=== PATIENT | male | born 1960 | race Caucasian/White ===

== ENCOUNTER 2020-06-15 14:09 | Emergency (ER) | payer BC, OTHER ==
--- OUTSIDE RECORDS SUMMARY | 2020-06-15 14:11 | XMS REPORT | Clinical Summary ---
:1960 Author Organization [facility] Address [address] [place] [address] Care Team Providers Name Role Phone Asked, Pcp Primary Care Provider Unavailable Allergies No Known Allergies Medications Medication Sig Dispensed Refills Start Date End Date Status colestipol HCl 0 Activ e (COLESTIPOL ORAL) polyethylene glycol Take 4,000 mL 4000 mL 0 11/08/201911/08 (GOLYTELY) by mouth once 236-22.74-6.74 -5.86 for 1 dose. gram solution Please drink half of the gallon as directed on the box. mesalamine (PENTASA) Take 1 capsule 120 capsule 3 11/30/2019 0 12/30/2019 250 mg CR capsule (250 mg total) by mouth 4 (four) times a day for 120 doses. Active Problems Problem Noted Date H/O resection of small bowel 04/28/2019 Chronic diarrhea 04/28/2019 History of small bowel obstruction 04/28/2019 H/O testicular cancer 04/28/2019 Asthma 04/28/2019 Frequent headaches 04/28/2019 Hx of cholecystectomy 04/28/2019 Hx of appendectomy 04/28/2019 Encounters Date Type Specialty Care Team Description 11/30/2019 Telephone Gastroenterology Johnson Hudson RN 11/30/2019 Orders Only Gastroenterology Robin Miranda MD 11/18/2019 Orders Only GastroenterRobin Milan, H/O resection of MD small bowel (Primary Dx) 11/15/2019 Office Visit GastroenterRobin Milan, Questioned Documents Examiner edmond diarrhea (Primary Dx); History of smal l bowel obstruction 11/08/2019 Orders Only Gastroenterology Maddi Abrams MA 11/01/2019 Telephone Gastroenterology Maddi Abrams MA 10/10/2019 Surgery Gastroenterology Robin Miranda, COLO NOSCOPY with MD Ford Barnes 10/10/2019 Anesthesia Event Gastroenterology Savage Naranjo MD other, Morris Ayon MD 10/10/2019 Hospital Encounter Gastroenterology Robin Miranda MD 09/29/2019 Telephone Gastroenterology Robin Miranda MD 09/23/2019 Office Visit Gastroenterology Robin Miranda, Hist ory of small bowel obstruction (Primary Dx); Chronic diarrhe a; H/O resection o f small bowel; Colon cancer sc reening 08/19/2019 Telephone Gastroenterology Johnson Hudson RN 07/01/2019 Office Visit Gastroenterology Robin Miranda, Questioned Documents Examiner edmond diarrhea (Primary Dx) after 06/15/2019 Family History Medical History Relation Name Comments Diabetes Father Heart disease Father Other Mother RA Other Sister brain tumor Colon cancer Neg Hx Esophageal cancer Neg Hx Stomach cancer Neg Hx Relation Name Status Comments Father Mother Sister Social History Tobacco Use Types Packs/Day Years Used Date Never Smoker Smokeless Tobacco: Never Used Alcohol Use Drinks/Week oz/Week Comments Yes 0.0 1-2 drinks per w [place] Sex Assigned at Date Recorded Not on file Job Start Date Occupation Industry Not on file Not on file Not on file Travel History Travel Start Travel End No recent travel history available. Last Filed Vital Signs Vital Sign Reading Time Taken Comments Blood Pressure 113/78 11/15/2019 9:25 AM [employer] Pulse 76 11/15/2019 9:25 AM [employer] Temperature 36.2 C (97.1 F) 10/10/2019 2:05 PM [employer] Respiratory Rate 18 10/10/2019 2:05 PM [employer] Oxygen Saturation 100% 10/10/2019 2:05 PM [employer] Inhaled Oxygen Concentration - - Weight 78.9 kg (174 lb) 11/15/2019 9:25 AM [employer] Height 170.2 cm (5' 7") 11/15/2019 9:25 AM [employer] Body Mass Index 27.25 11/15/2019 9:25 AM [employer] Plan of Treatment Health Maintenance Due Date Last Done Comments COLONOSCOPY SCREENING 2010 SHINGLES VACCINES (#1) 2010 INFLUENZA VACCINE 05/29/2020 Procedures Procedure Name Priority Date/Time Associated Comments Diagnosis SURGICAL PATHOLOGY Routine 10/10/2019 2:24 Resul ts for this REQUEST PM [employer] procedure are i n the results section. COLONOSCOPY 10/10/2019 1:07 Colon cancer PM [employer] screening after 06/15/2019 Results Surgical pathology request (10/10/2019 2:24 PM [employer]) [facility] DEPARTMENT OF PATHOLOGY AND GENOMIC MEDICINE Surgical pathology See link below [facility] DEPARTMENT OF report for PDF Lab PATHOLOGY AND Report GENOMIC MEDICINE Result status This is Final [facility] DEPARTMENT OF Report for PATHOLOGY AND [id number] GENOMIC MEDICINE Specimen Performing Organization Address City/State/Zipcode Phone Number [facility] DEPARTMENT OF PATHOLOGY AND [address] [place], [place] [address] GENOMIC MEDICINE after 06/15/2019 Advance Directives For more information, please contact: [phone] Type Date Recorded Patient Machine Ii Engraver Explanati on Advance Directives, Living Will 10/10/2019 12:10 PM and Medical Power of Channeler Runner
--- OUTSIDE RECORDS SUMMARY | 2020-06-15 14:12 | XMS REPORT | Continuity of Care Document ---
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, 18 [place] unspecified as to cause SMALL BOWEL Active 08/31/20 MH [place] OBSTRUCTION 15 [place] OTHER INTESTINAL Active 08/31/20 [place] OBS 15 [place] HIGH GRADE PARTIAL Active 03/20/20 M H [place] SMALL BOWEL 14 [place] OBSTRUCTI ABD PAIN Active 11/02/19 [place] 14 [place] Acute kidney 04/09/2018 [place] ar failure, [place] unspecified Abdominal pain Active Problem 04/09/2018 O PID (finding) [place] Anal fissure Resolved Problem 04/09/2018 OPI D (disorder) [place] ASTHMA(Confirmed) Resolved Problem 04/09/2018 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 (disorder) [place], [place] Diarrhea (finding) Resolved Problem 04/09/2018 [place] Diverticulitis Active Problem 04/09/2018 O PID (disorder) [place] Steatosis of liver Active Problem 04/09/2018 OPID (disorder) [place] Intestinal Active Problem 04/09/2018 OPID obstruction [place] (disorder) [place], [place] Kidney stone Resolved Problem 04/09/2018 OPI D (disorder) [place] ASTHMA(Confirmed) Resolved Problem 09/06/2015 M H OPID [place] INTESTINAL Active [place] OBSTRUCT NOS [place] OTHER INTESTINAL Active [place] OBSTRUCTION [place] Medications Medication Details Route Status Patient Ordering Order Source Instructions Provider Date Acetaminophen 1 - 2 tab, PO, No Longer 01/01/ M H 300 MG / Q4H, PRN Pain, Active 018 [place] Codeine X 3 day, # 20 [place] Phosphate 30 MG tab, 0 Oral Tablet Refill(s) [Tylenol with Codeine #3] Magnesium Notes: WASTE: Inactive Sulfate F/P - Sink; E - 018 [place] [employer] [place] Bin Morphine Notes: (Same No Longer as:MORPhine Active 018 [place] Sulfate) [place] Zofran Notes: (Same No Longer as: Zofran) Active 018 [place] MEDICATION [place] WASTE Product Size: 4 mg Product Wasted: ___ mg Tylenol Notes: Do not No Longer exceed 4 Active 018 [place] gm/day. (Same [place] as: Tylenol) normal saline 1,000 mL, Rate: No Longer 0.9% IV 1,000 100 ml/hr, Active 018 [place] mL Infuse over: 10 [place] hr, Route: IV, Dosing Weight 77.273 kg, Total Volume: 1,000, Start date: 12/31/17 12:53:00 CDT, Duration: 30 day, Stop date: 01/30/18 12:52:00 CDT, 1.93, m2 Albuterol 0.83 Notes: SEE RT Inactive MG/ML Inhalant DOCUMENTATION 018 [place] ar Solution (Same as: [facility] Proventil) Morphine Notes: (Same Inactive as:MORPhine 018 [place] Sulfate) [place] Sodium Chloride 1,000 mL, 1000 Inactive 0.9% (Bolus) IV ml/hr, Infuse 018 Munoz gar Over: 1 hr, [facility] Route: IV, 1,000, Drug form: INJ, ONCE, Priority: STAT, Dosing Weight 73.722 kg, Start date: 12/31/17 9:05:00 CDT, Stop date: 12/31/17 9:05:00 CDT Saline Flush Notes: (Same Inactive 0.9% as: BD 018 [place] Posiflush) [place] Ondansetron Notes: (Same Inactive as: Zofran) 018 [place] MEDICATION [place] WASTE Product Size: 4 mg Product Wasted: ___ mg ciprofloxacin 500 mg = 1 tab, Active MH 500 mg oral PO, Q12H, X 7 015 [place] tablet day, # 14 tab, [place] 0 Refill(s) Metronidazole 500 mg = 1 tab, Active MH 500 MG Oral PO, BID, X 7 015 [place] Tablet day, # 14 tab, [place] 0 Refill(s) potassium 40 mEq, Route: Inactive MH chloride IVPB, ONCE, 015 [place] Dosing Weight [place] 75, kg, Start date: 09/02/15 10:00:00, Stop date: 09/02/15 10:00:00 potassium Notes: Infuse Inactive MH chloride at a rate of 10 015 [place] mEq/hr. (Same [place] as: KCL) Ciprofloxacin Notes: Do not No Longer MH refrigerate Active 015 [place] Flagyl Notes: (Same No Longer MH as: Flagyl) Active 015 [place] Avoid alcohol. [place] Colestipol 2-3 tab, PO, Active MH Hydrochloride TID 015 [place] 1000 MG Oral [place] Tablet Ondansetron Notes: (Same No Longer MH as: Zofran) Active 015 [place] MEDICATION [place] WASTE Product Size: 4 mg Product Wasted: ___ mg Morphine Notes: (Same Inactive MH as:MORPhine 015 [place] Sulfate) [place] potassium Notes: Infuse Inactive MH chloride at a rate of 10 015 [place] mEq/hr. (Same [place] as: KCL) Morphine Notes: (Same No Longer MH as:MORPhine Active 015 [place] Sulfate) [place] Zofran Notes: (Same No Longer MH as: Zofran) Active 015 [place] MEDICATION [place] WASTE Product Size: 4 mg Product Wasted: ___ mg Morphine Notes: (Same No Longer MH as:MORPhine Active 015 [place] Sulfate) [place] Morphine 4 mg, Route: Inactive MH IVP, ONCE, 015 [place] Dosing Weight [place] 75.636, kg, Priority: STAT, Start date: 08/31/15 14:02:00, Stop date: 08/31/15 14:02:00 Ondansetron 4 mg, Route: Inactive MH IVP, ONCE, 015 [place] Dosing Weight [place] 75.636, kg, Priority: STAT, Start date: 08/31/15 14:02:00, Stop date: 08/31/15 14:02:00 Sodium Chloride 1,000 mL, Rate: No Longer 0.154 MEQ/ML 125 ml/hr, Active 015 [place] Injectable Infuse over: 8 [place] Solution hr, Route: IV, Dosing Weight 75.636 kg, Total Volume: 1,000, Start date: 08/31/15 14:02:00, Duration: 30 day, Stop date: 09/30/15 14:01:00 Saline Flush Notes: (Same No Longer MH 0.9% as: BD Active 015 [place] Posiflush) [place] Allergies, Adverse Reactions, Alerts Substance Category Reaction Severity Reaction Status Date Comments S ource type Reported Thorazine Assertion anaphylaxis Drug Active MH allergy [place] Dilaudid Assertion Drug Active MH allergy [place] Immunizations No Data Provided for This Section Results Order Name Results Value Reference Date Interpretation Comments Cristal rce Range CHEM PANEL eGFR 58 01/01 Result Comment: The [place] eGFR is [place] calculated using the CKD-EPI formula. In most young, healthy individuals the eGFR will be >90 mL/min/1.73m2 . The eGFR declines with age. An eGFR of 60-89 may be normal in some populations, particularly the elderly, for whom the CKD-EPI formula has not been extensively validated. Use of the eGFR is not recommended in the following populations:< br/>
Autumn viduals with unstable creatinine concentration s, including patients and those with serious co-morbid conditions.<b r/>
Patie nts with extremes in muscle mass or diet.

The data above are obtained from the National Kidney Disease Education Program (NKDEP) which additionally recommends that when the eGFR is used in patients with extremes of body mass index for purposes of drug dosing, the eGFR should be multiplied by the estimated BMI. CHEM PANEL Calcium Lvl 7.5 8.5 - 10.5 01/01 [place] CHEM PANEL AGAP 14.2 10.0 - 01/01 MH 20.0 [place] CHEM PANEL CO2 20 24 - 32 01/01 [place] CHEM PANEL Chloride Lvl 109 95 - 109 01/01 [place] CHEM PANEL Potassium Lvl 3.2 3.5 - 5.1 01/01 [place] CHEM PANEL Sodium Lvl 140 135 - 145 04/ [place] CHEM PANEL Creatinine 1.34 0.50 - 04/ MH Lvl 1.40 /2017 [place] CHEM PANEL BUN 19 7 - 22 04/ [place] CHEM PANEL Glucose Lvl 88 70 - 99 04/ [place] CHEM PANEL Magnesium Lvl 1.0 1.8 - 2.4 04/ Result Comment: [place] Critical [place] Result(s) called to Tonny Damon at 01/01/2018 06:14 by NEIDA. Read back OK. CHEM PANEL Phosphorus 2.1 2.5 - 4.5 04/ [place] HEMATOLOGY MCV 89.3 80.0 - 04/ MH 94.0 /2017 [place] HEMATOLOGY MCH 30.6 27.0 - 04/ MH 31.0 [place] HEMATOLOGY Hct 40.8 42.0 - 04/ MH 54.0 [place] HEMATOLOGY Platelet 198 133 - 450 01/01 [place] HEMATOLOGY RDW 13.2 11.5 - 04 MH 14.5 /2017 [place] HEMATOLOGY MCHC 34.3 32.0 - 04/ MH 36.0 [place] HEMATOLOGY MPV 7.4 7.4 - 10.4 / [place] HEMATOLOGY WBC 7.0 3.7 - 10.4 / [place] HEMATOLOGY Hgb 14.0 14.0 - 04/ MH 18.0 /2017 [place] HEMATOLOGY RBC 4.57 4.70 - 04 MH 6.10 /2017 [place] HEMATOLOGY Basophils # 0.0 0.0 - 0.2 / [place] HEMATOLOGY Eosinophils # 0.2 0.0 - 0.5 04/ [place] HEMATOLOGY Monocytes # 0.6 0.0 - 0.8 04/ MH [place] HEMATOLOGY Monocytes 8.2 2.0 - 12.0 04/ MH [place] HEMATOLOGY Lymphocytes 28.4 20.0 - 04/ MH 40.0 [place] HEMATOLOGY Lymphocytes # 2.0 1.0 - 5.5 / [place] HEMATOLOGY Basophils 0.3 0.0 - 1.0 / [place] HEMATOLOGY Segs 59.5 45.0 - 04/ MH 75.0 /2017 [place] HEMATOLOGY Eosinophils 3.6 0.0 - 4.0 01/01 [place] HEMATOLOGY Segs-Bands # 4.2 1.5 - 8.1 01/01 [place] CHEM PANEL Lipase Lvl 111 73 - 393 12/31 [place] CHEM PANEL A/G Ratio 1.1 0.7 - 1.6 12/31 [place] CHEM PANEL Globulin 4.1 2.7 - 4.2 12/31 [place] CHEM PANEL B/C Ratio 11 6 - 25 12/31 [place] CHEM PANEL AGAP 16.7 10.0 - 04/ MH 20.0 /2017 [place] CHEM PANEL eGFR 37 04/ Result Comment: The [place] eGFR is [place] calculated using the CKD-EPI formula. In most young, healthy individuals the eGFR will be >90 mL/min/1.73m2 . The eGFR declines with age. An eGFR of 60-89 may be normal in some populations, particularly the elderly, for whom the CKD-EPI formula has not been extensively validated. Use of the eGFR is not recommended in the following populations:< br/>
Autumn viduals with unstable creatinine concentration s, including patients and those with serious co-morbid conditions.<b r/>
Patie nts with extremes in muscle mass or diet.

The data above are obtained from the National Kidney Disease Education Program (NKDEP) which additionally recommends that when the eGFR is used in patients with extremes of body mass index for purposes of drug dosing, the eGFR should be multiplied by the estimated BMI. CHEM PANEL Alk Phos 87 39 - 136 12/31 [place] CHEM PANEL Bili Total 1.1 0.2 - 1.3 12/31 [place] CHEM PANEL AST 17 0 - 37 12/31 [place] CHEM PANEL Albumin Lvl 4.6 3.5 - 5.0 12/31 [place] CHEM PANEL ALT 15 0 - 65 12/31 [place] CHEM PANEL Total Protein 8.7 6.4 - 8.4 12/31 [place] CHEM PANEL Calcium Lvl 9.3 8.5 - 10.5 12/31 [place] CHEM PANEL BUN 21 7 - 22 12/31 [place] CHEM PANEL Glucose Lvl 114 70 - 99 04/05 [place] CHEM PANEL Chloride Lvl 107 95 - 109 04/ [place] CHEM PANEL CO2 23 24 - 32 04/ [place] CHEM PANEL Potassium Lvl 3.7 3.5 - 5.1 04/ [place] CHEM PANEL Creatinine 1.95 0.50 - 04/05 MH Lvl 1.40 /2017 [place] CHEM PANEL Sodium Lvl 143 135 - 145 04/05 [place] HEMATOLOGY RBC 5.63 4.70 - 04/05 MH 6.10 /2017 [place] HEMATOLOGY WBC 12.1 3.7 - 10.4 04/ [place] HEMATOLOGY Hgb 17.3 14.0 - 04/ 18.0 /2017 [place] HEMATOLOGY Hct 50.6 42.0 - 04/05 54.0 /2017 [place] HEMATOLOGY MCH 30.7 27.0 - 04/ MH 31.0 /2017 [place] HEMATOLOGY MCV 89.9 80.0 - 04/05 94.0 /2017 [place] HEMATOLOGY Platelet 264 133 - 450 04/ [place] HEMATOLOGY RDW 12.9 11.5 - 04/05 MH 14.5 /2017 [place] HEMATOLOGY MCHC 34.1 32.0 - 04/05 MH 36.0 /2017 [place] HEMATOLOGY MPV 8.0 7.4 - 10.4 / [place] HEMATOLOGY Basophils # 0.0 0.0 - 0.2 / [place] HEMATOLOGY Eosinophils # 0.1 0.0 - 0.5 04/05 [place] HEMATOLOGY Monocytes # 0.8 0.0 - 0.8 04/05 [place] HEMATOLOGY Lymphocytes # 1.2 1.0 - 5.5 04/05 MH [place] HEMATOLOGY Basophils 0.2 0.0 - 1.0 04/05 MH [place] HEMATOLOGY Segs-Bands # 9.9 1.5 - 8.1 04/05 [place] HEMATOLOGY Eosinophils 0.9 0.0 - 4.0 04/05 MH [place] HEMATOLOGY Lymphocytes 10.1 20.0 - 04/05 MH 40.0 [place] HEMATOLOGY Monocytes 7.0 2.0 - 12.0 04/05 [place] HEMATOLOGY Segs 81.8 45.0 - 12/31 75.0 [place] HEMATOLOGY RBC Morph Normal 12/31 (12/31/17 9:47 AM) [place] URINE AND UA <=1.0 mg/dL 0.1 - 1.0 12/31 STOOL Urobilinogen [place] URINE AND UA Sq Epi None Seen 12/31 STOOL [place] URINE AND UA WBC 4 0 - 5 12/31 STOOL [place] URINE AND UA Trans Epi 3 <=0 /LPF 12/31 STOOL [place] URINE AND UA Hyal Cast 113 0 - 2 12/31 STOOL [place] URINE AND UA Mucus Many /LPF None Seen 12/31 STOOL /LPF [place] URINE AND UA RBC 1 0 - 2 12/31 STOOL [place] URINE AND UA Leuk Est Negative Negative 12/31 STOOL (12/31/17 9:47 AM) [place] URINE AND UA Glucose Negative Negative 12/31 STOOL mg/dL mg/dL [place] URINE AND UA Protein 100 mg/dL Negative 12/31 [place] mg/dL [place] URINE AND UA pH 5.0 5.0 - 8.0 12/31 STOOL [place] URINE AND UA Spec Grav 1.031 <=1.030 12/31 STOOL [place] URINE AND UA Turbidity Marked Clear 12/31 STOOL *ABN* [place] (12/31/17 9:47 AM) [place] URINE AND UA Nitrite Negative Negative 12/31 [place] (12/31/17 9:47 AM) [place] URINE AND UA Blood Negative Negative 12/31 [place] (12/31/17 9:47 AM) [place] URINE AND UA Bili Small Negative 12/31 STOOL *ABN* [place] (12/31/17 9:47 AM) [place] URINE AND UA Ketones Negative Negative 12/31 STOOL mg/dL mg/dL [place] URINE AND UA Color Jo-Ann Yellow 12/31 STOOL *ABN* [place] (12/31/17 9:47 AM) [place] CHEM PANEL eGFR 70 09/03 Result Comment: The [place] eGFR is [place] calculated using the CKD-EPI formula. In most young, healthy individuals the eGFR will be >90 mL/min/1.73m2 . The eGFR declines with age. An eGFR of 60-89 may be normal in some populations, particularly the elderly, for whom the CKD-EPI formula has not been extensively validated. Use of the eGFR is not recommended in the following populations:< br/>
Autumn viduals with unstable creatinine concentration s, including patients and those with serious co-morbid conditions.<b r/>
Patie nts with extremes in muscle mass or diet.

The data above are obtained from the National Kidney Disease Education Program (NKDEP) which additionally recommends that when the eGFR is used in patients with extremes of body mass index for purposes of drug dosing, the eGFR should be multiplied by the estimated BMI. CHEM PANEL Sodium Lvl 143 135 - 145 09/03 [place] CHEM PANEL AGAP 12.3 10.0 - 09/03 MH 20.0 /2014 [place] CHEM PANEL Chloride Lvl 108 95 - 109 09/03 [place] CHEM PANEL CO2 26 24 - 32 09/03 [place] CHEM PANEL Potassium Lvl 3.3 3.5 - 5.1 09/03 [place] CHEM PANEL Calcium Lvl 7.8 8.5 - 10.5 09/03 [place] CHEM PANEL Creatinine 1.16 0.50 - 09/03 MH Lvl 1.40 /2014 [place] CHEM PANEL BUN 4 7 - 22 09/03 [place] CHEM PANEL Glucose Lvl 134 70 - 99 09/03 [place] HEMATOLOGY Lymphocytes # 2.5 1.0 - 5.5 09/03 [place] HEMATOLOGY Basophils 0.4 0.0 - 1.0 09/03 [place] HEMATOLOGY Monocytes # 0.5 0.0 - 0.8 09/03 [place] HEMATOLOGY Segs-Bands # 4.9 1.5 - 8.1 09/03 [place] HEMATOLOGY Eosinophils # 0.2 0.0 - 0.5 09/03 [place] HEMATOLOGY Basophils # 0.0 0.0 - 0.2 09/03 [place] HEMATOLOGY Lymphocytes 30.2 20.0 - 12 MH 40.0 /2014 [place] HEMATOLOGY Segs 60.2 45.0 - 12 MH 75.0 /2014 [place] HEMATOLOGY Eosinophils 2.8 0.0 - 4.0 09/03 [place] HEMATOLOGY Monocytes 6.4 2.0 - 12.0 09/03 [place] HEMATOLOGY Hgb 12.4 14.0 - 09/03 MH 18.0 /2014 [place] HEMATOLOGY MCV 92.0 80.0 - 09/03 MH 94.0 /2014 [place] HEMATOLOGY Hct 37.8 42.0 - 09/03 MH 54.0 /2014 [place] HEMATOLOGY RDW 12.9 11.5 - 12 MH 14. /2014 [place] HEMATOLOGY MCHC 32.8 32.0 - 12 MH 36.0 /2014 [place] HEMATOLOGY MCH 30.1 27.0 - 12 MH 31.0 /2014 [place] HEMATOLOGY RBC 4.11 4.70 - 09/03 MH 6.10 [place] HEMATOLOGY WBC 8.2 3.7 - 10.4 09/03 [place] HEMATOLOGY Platelet 222 133 - 450 09/03 [place] HEMATOLOGY MPV 7.7 7.4 - 10.4 09/03 [place] CHEM PANEL eGFR 74 09/02 Comment: The [place] eGFR is [place] calculated using the CKD-EPI formula. In most young, healthy individuals the eGFR will be >90 mL/min/1.73m2 . The eGFR declines with age. An eGFR of 60-89 may be normal in some populations, particularly the elderly, for whom the CKD-EPI formula has not been extensively validated. Use of the eGFR is not recommended in the following populations:< br/>
Autumn viduals with unstable creatinine concentration s, including patients and those with serious co-morbid conditions.<b r/>
Patie nts with extremes in muscle mass or diet.

The data above are obtained from the National Kidney Disease Education Program (NKDEP) which additionally recommends that when the eGFR is used in patients with extremes of body mass index for purposes of drug dosing, the eGFR should be multiplied by the estimated BMI. CHEM PANEL AGAP 11.9 10.0 - 09/02 MH 20.0 [place] CHEM PANEL Calcium Lvl 7.8 8.5 - 10.5 09/02 [place] CHEM PANEL Creatinine 1.12 0.50 - 12/ MH Lvl 1.40 /2014 [place] CHEM PANEL CO2 25 24 - 32 12 [place] CHEM PANEL Sodium Lvl 143 135 - 145 12 [place] CHEM PANEL Chloride Lvl 109 95 - 109 12 [place] CHEM PANEL Potassium Lvl 2.9 3.5 - 5.1 09/02 Result Comment: [place] Critical [place] Result(s) called to ABDIEL WAITE RN_ at 09/02/2015 06:07 byJA. Read back OK. CHEM PANEL BUN 4 7 - 22 12 [place] CHEM PANEL Glucose Lvl 100 70 - 99 12 /2014 [place] HEMATOLOGY Hct 37.7 42.0 - 12 MH 54.0 /2014 [place] HEMATOLOGY MCV 92.2 80.0 - 12 MH 94.0 /2014 [place] HEMATOLOGY MCH 30.2 27.0 - 09/02 MH 31.0 /2014 [place] HEMATOLOGY Platelet 221 133 - 450 09/02 [place] HEMATOLOGY MPV 7.5 7.4 - 10.4 09/02 [place] HEMATOLOGY Hgb 12.4 14.0 - 12 MH 18.0 /2014 [place] HEMATOLOGY RBC 4.09 4.70 - 12 MH 6.10 /2014 [place] HEMATOLOGY MCHC 32.8 32.0 - 12 MH 36.0 /2014 [place] HEMATOLOGY RDW 12.9 11.5 - 12/ MH 14.5 /2014 [place] HEMATOLOGY WBC 6.9 3.7 - 10.4 09/02 [place] HEMATOLOGY Monocytes 6.7 2.0 - 12.0 09/02 [place] HEMATOLOGY Basophils 0.4 0.0 - 1.0 09/02 /2014 [place] HEMATOLOGY Segs 58.5 45.0 - 12 MH 75.0 /2014 [place] HEMATOLOGY Lymphocytes 32.2 20.0 - 12/ MH 40.0 /2014 [place] HEMATOLOGY Eosinophils 2.2 0.0 - 4.0 09/02 [place] HEMATOLOGY Segs-Bands # 4.0 1.5 - 8.1 09/02 [place] HEMATOLOGY Lymphocytes # 2.2 1.0 - 5.5 09/02 [place] HEMATOLOGY Monocytes # 0.5 0.0 - 0.8 09/02 [place] HEMATOLOGY Eosinophils # 0.2 0.0 - 0.5 09/02 [place] HEMATOLOGY Basophils # 0.0 0.0 - 0.2 09/02 [place] CHEM PANEL B/C Ratio 8 6 - 25 09/01 [place] CHEM PANEL CO2 25 24 - 32 09/01 [place] CHEM PANEL AGAP 10.7 10.0 - 09/01 MH 20.0 /2014 [place] CHEM PANEL Albumin Lvl 3.2 3.5 - 5.0 09/01 [place] CHEM PANEL Calcium Lvl 7.8 8.5 - 10.5 09/01 [place] CHEM PANEL Total Protein 5.9 6.4 - 8.4 09/01 [place] CHEM PANEL Glucose Lvl 86 70 - 99 09/01 [place] CHEM PANEL BUN 9 7 - 22 09/01 [place] CHEM PANEL ALT 16 0 - 65 09/01 [place] CHEM PANEL A/G Ratio 1.2 0.7 - 1.6 09/01 [place] CHEM PANEL Alk Phos 76 39 - 136 09/01 [place] CHEM PANEL AST 21 0 - 37 09/01 [place] CHEM PANEL Globulin 2.7 2.0 - 4.0 09/01 [place] CHEM PANEL eGFR 69 09/01 [facility] Comment: The [place] eGFR is [place] calculated using the CKD-EPI formula. In most young, healthy individuals the eGFR will be >90 mL/min/1.73m2 . The eGFR declines with age. An eGFR of 60-89 may be normal in some populations, particularly the elderly, for whom the CKD-EPI formula has not been extensively validated. Use of the eGFR is not recommended in the following populations:< br/>
Autumn viduals with unstable creatinine concentration s, including patients and those with serious co-morbid conditions.<b r/>
Patie nts with extremes in muscle mass or diet.

The data above are obtained from the National Kidney Disease Education Program (NKDEP) which additionally recommends that when the eGFR is used in patients with extremes of body mass index for purposes of drug dosing, the eGFR should be multiplied by the estimated BMI. CHEM PANEL Bili Total 0.5 0.2 - 1.3 12/ MH /2014 [place] CHEM PANEL Sodium Lvl 142 135 - 145 12/ MH [place] CHEM PANEL Creatinine 1.18 0.50 - 12/05 MH Lvl 1.40 /2014 [place] CHEM PANEL Chloride Lvl 110 95 - 109 09/01 [place] CHEM PANEL Potassium Lvl 3.7 3.5 - 5.1 12 [place] HEMATOLOGY Monocytes # 0.5 0.0 - 0.8 12/ MH [place] HEMATOLOGY Eosinophils # 0.2 0.0 - 0.5 / MH [place] HEMATOLOGY Basophils # 0.0 0.0 - 0.2 09/01 MH [place] HEMATOLOGY Lymphocytes # 2.9 1.0 - 5.5 09/01 [place] HEMATOLOGY Basophils 0.5 0.0 - 1.0 09/01 [place] HEMATOLOGY Segs-Bands # 3.8 1.5 - 8.1 12 MH [place] HEMATOLOGY Monocytes 6.4 2.0 - 12.0 12/ MH [place] HEMATOLOGY Eosinophils 2.3 0.0 - 4.0 / MH [place] HEMATOLOGY Lymphocytes 39.5 20.0 - 12/05 MH 40.0 /2014 [place] HEMATOLOGY Segs 51.3 45.0 - 12/ MH 75.0 /2014 [place] HEMATOLOGY RBC 4.15 4.70 - 12/05 MH 6.10 /2014 [place] HEMATOLOGY MCH 30.2 27.0 - 12/05 MH 31.0 /2014 [place] HEMATOLOGY MCV 92.0 80.0 - 12/05 MH 94.0 /2014 [place] HEMATOLOGY Hct 38.2 42.0 - 12/05 MH 54.0 /2014 [place] HEMATOLOGY Hgb 12.5 14.0 - 12/05 MH 18.0 /2014 [place] HEMATOLOGY MCHC 32.8 32.0 - 12/05 MH 36.0 /2014 [place] HEMATOLOGY MPV 7.9 7.4 - 10.4 09/01 MH [place] HEMATOLOGY Platelet 222 133 - 450 12/ MH [place] HEMATOLOGY RDW 12.9 11.5 - 12/05 MH 14.5 /2014 [place] HEMATOLOGY WBC 7.3 3.7 - 10.4 09/01 [place] URINE AND UA pH 5.5 5.0 - 8.0 08/31 STOOL [place] URINE AND UA Protein 30 mg/dL Negative 08/31 [facility] mg/dL [place] URINE AND UA Spec Grav >=1.030 <=1.030 08/31 STOOL *ABN* /2014 [place] (08/31/15 2:25 PM) [place] URINE AND UA Ketones Negative Negative 08/31 STOOL *NA* /2014 [place] (08/31/15 2:25 PM) [place] URINE AND UA Mucus Moderate None Seen 08/31 STOOL /LPF /LPF /2014 [place] URINE AND UA RBC 0-2 /HPF 0 - 2 08/31 STOOL [place] URINE AND UA Bacteria Occasional None Seen 08/31 STOOL /HPF /HPF [place] URINE AND UA Bili Small Negative 08/31 STOOL *ABN* [place] (08/31/15 2:25 PM) [place] URINE AND UA Leuk Est Negative Negative 08/31 STOOL (08/31/15 2:25 PM) [place] URINE AND UA Sq Epi Rare /LPF Few /LPF 08/31 STOOL [place] URINE AND UA Nitrite Negative Negative 08/31 STOOL (08/31/15 2:25 PM) [place] URINE AND UA Blood Negative Negative 08/31 [facility]O[place] (08/31/15 2:25 PM) [place] URINE AND UA 0.2 0.1 - 1.0 08/31 STOOL Urobilinogen /2014 [place] URINE AND UA Glucose Negative Negative 08/31 STOOL (08/31/15 2:25 PM) [place] URINE AND UA Turbidity Clear Clear 08/31 STO[facility] (08/31/15 2:25 PM) [place] URINE AND UA Color Yellow Yellow 08/31 STOOL *NA* [place] (08/31/15 2:25 PM) [place] URINE AND UA WBC 0-2 /HPF None Seen 08/31 STOOL /HPF [place] CHEM PANEL Globulin 3.3 2.0 - 4.0 08/31 [place] CHEM PANEL Total Protein 7.5 6.4 - 8.4 08/31 [place] CHEM PANEL Albumin Lvl 4.2 3.5 - 5.0 08/31 [place] CHEM PANEL A/G Ratio 1.3 0.7 - 1.6 08/31 [place] CHEM PANEL AST 17 0 - 37 08/31 [place] CHEM PANEL Bili Total 0.4 0.2 - 1.3 08/31 [place] CHEM PANEL ALT 19 0 - 65 08/31 [place] CHEM PANEL Alk Phos 94 39 - 136 08/31 [place] CHEM PANEL B/C Ratio 11 6 - 25 08/31 [place] CHEM PANEL Lipase Lvl 313 73 - 393 08/31 [place] HEMATOLOGY PT 13.8 12.0 - 08/31 14.7 /2014 [place] HEMATOLOGY PTT 29.5 22.9 - 08/31 35.8 /2014 [place] HEMATOLOGY INR 1.03 0.85 - 08/31 1.17 [place] Pathology Reports No Data Provided for This Section Diagnostic Reports Report Value Date Source Abdomen 2 views DX EXAM: XR ABDOMEN 2 VIEW 01/01/2018 [facility] DATE: 01/01/2018 3:00 AM CDT INDICATION: - sbo ADDITIONAL INFORMATION: None. COMPARISON: 12/31/2017 TECHNIQUE: Upright and supine frontal view(s) o f the abdomen. FINDINGS: Lines and tubes: None. Lower thorax: Unremarkable where visualized. No free air under the diaphragm. Bowel: Bowel gas pattern is nonobstructive. No dilated bowel loops are visualized. Bones: No acute abnormality. IMPRESSION: Nonobstructive bowel gas pattern Abdomen 2 views DX {ABDOMINAL XRAY}12/31/2017 9:29 AM CDT 01/01/20 18 [facility] INDICATION: - r/o bowel obstruction COMPARISON: CT abdomen pelvis 08/31/2015, abdom inal x-ray 08/31/2015 TECHNIQUE: 2 views of the abdomen were performed . FINDINGS: No pneumoperitoneu m. There are multiple air-fluid levels in the colon, small bowel and the stomach. There is dilation of the small bowel in the left to mid abdomen, measuring up to 3.7 cm. Gas is present in the rectosigmoid region. There are no clinically significant osseous abno rmalities noted. IMPRESSION: Findings suggestive of gastr oenteritis or early/partial small bowel obstruction. Recommend further correlation with CT abdomen and pelvis. Findings discussed with Dr. Gallo over the phone by Dr. Joseph on 12/31/2017 at 1038 hours. Abdomen/Pelvis w IV EXAM: CT ABDOMEN AND PELVIS WITH CONTRAST 08/31/[address] [facility] [address] DATE:- Aug 31, 2015 04:57:45 PM . CLINICAL INDICATION: Acute abdominal pain. ADDITIONAL DATA: History of testicular cancer, h istory of abdominal surgeries COMPARISON: CT pelvis of 03/20/2014 Dose: DLP 989 mGy-cm TECHNIQUE: Helical acquisit ion of the abdomen and pelvis was obtained from the lung bases to the symphysis pubis after administration of oral contrast, and after uneventful administration of 100 cc O mnipaque intravenous contras t in the venous and delayed phases of contrast enhancement. Axial, sagittal and coronal images were interpreted. FINDINGS: Lung bases: Dependent atelectasis. Liver: Diffuse low density. Idx-hbatz-cx-characterize 5 mm hypodense right hepatic lesions. These appear stable compared with previous study. Spleen: Within normal limits. Adrenal glands: Within normal limits. Gallbladder/biliary: Within normal limits. Kidneys: Within normal limits. Normal excretion on delayed images. Pancreas: Within normal limits GI tract: Single postoperat gabby changes. Appendectomy. Fluid-filled right colon. Mild gaseous distention of transverse colon. Thickened ileum with adjacent inflammatory changes. Lymph nodes: Within normal limits. Urinary bladder: Within normal limits. Reproductive structures: Within normal limits. Regional skeleton: Within normal limits IMPRESSION: 1. Findings suggesting enter itis involving small bowel loops with fluid-filled loops of colon, which may be seen with diarrhea. There is no obstruction, perforation, or abscess. 2. Otherwise no acute abnormality in abdomen pel vis Abdomen 2 views DX Examination: Abdomen 2 views 08/31/2015 [employer] Provided History: Acute abdominal pain DIAGNOSIS: Abnormal bowel gas pattern, CT sca nning would be useful. DISCUSSION: Flat and upright views the abdomen demonstrate colonic distention with numerous air-fluid levels most of which appear within the colon as can be identified. At least mildly dilated fluid-pallavi led small bowel is evident. No free air is noted . The findings are abnormal. I suspect some degree of underlying small bowel obstruction however moderately distended colon with air-fluid levels may also suggest an associated ileus. CT scanning is recommended for a more definitive evaluation. Consultation Notes No Data Provided for This Section Discharge Summaries No Data Provided for This Section History and Physicals No Data Provided for This Section Vital Signs Vital Sign Value Date Comments Source Temperature Oral (F) 98.1 F 01/01/2018 [facility] [place] Respitory Rate 18 01/01/2018 [facility] [place] Heart Rate 67 01/01/2018 [facility] [place] Systolic (mm Hg) 92 01/01/2018 [facility] [place] Diastolic (mm Hg) 56 01/01/2018 [facility] [place] Respitory Rate 18 01/01/2018 [facility] [place] Heart Rate 64 01/01/2018 [facility] [place] Systolic (mm Hg) 97 01/01/2018 [facility] [place] Diastolic (mm Hg) 60 01/01/2018 [facility] [place] Temperature Oral (F) 98.2 F 01/01/2018 [facility] [place] Temperature Oral (F) 98.8 F 01/01/2018 [facility] [place] Systolic (mm Hg) 90 01/01/2018 [facility] [place] Diastolic (mm Hg) 62 01/01/2018 [facility] [place] Respitory Rate 18 01/01/2018 [facility] [place] Heart Rate 73 01/01/2018 [facility] [place] Height 170.18 cm 12/31/2017 [facility] [place] BMI Calculated 26.68 12/31/2017 [facility] [place] Weight 77.273 12/31/2017 [facility] [place] Weight 73.722 12/31/2017 [facility] [place] BMI Calculated 25.46 12/31/2017 [facility] [place] Height 170.18 cm 12/31/2017 [facility] [place] Respitory Rate 16 09/03/2015 [facility] [place] Heart Rate 72 09/03/2015 [facility] [place] Temperature Oral (F) 98.2 F 09/03/2015 [facility] [place] Systolic (mm Hg) 117 09/03/2015 [facility] [place] Diastolic (mm Hg) 77 09/03/2015 [facility] [place] Respitory Rate 16 09/03/2015 [facility] [place] Systolic (mm Hg) 95 09/03/2015 [facility] [place] Diastolic (mm Hg) 60 09/03/2015 [facility] [place] Temperature Oral (F) 98 F 09/03/2015 [facility] [place] Heart Rate 59 09/03/2015 [facility] [place] Systolic (mm Hg) 118 09/03/2015 [facility] [place] Diastolic (mm Hg) 69 09/03/2015 [facility] [place] Respitory Rate 17 09/03/2015 [place] Heart Rate 74 09/03/2015 [place] Temperature Oral (F) 98 F 09/03/2015 [facility] [facility] Height 170.18 cm 08/31/2015 [place] BMI Calculated 25.9 08/31/2015 [place] Weight 75 08/31/2015 [place] Weight 75.636 08/31/2015 [place] Encounters Location Location Encounter Encounter Reason Attending ADM DC Stat us Source Details Type Number For Provider Date Date Visit [facility] Outpt Diag [id number] Shiv 04/27 04/28 [facility] [id number] Daming 08/31 09/03 [facility]2014 [facility] [facility] Inpatient [id number] Shormi 12/31 01/01 [facility] /2017 [facility] [place] [facility] Procedures Procedure Code Date Perfomer Comments Source Appendectomy [id number] [place] Bilateral vasectomy [id number] [facility] Cholecystectomy [id number] [place] Colon operation [id number] [place] Miscellaneous [id number] intestinal [place] operations<sup>1</sup obstructions x 2 [place] > Scrotum and testicle [id number] [facility] [facility] Assessment and Plan No Data Provided for This Section Plan of Care No Data Provided for This Section Social History Social History Date Source Social History TypeResponse 03/21/2014 [facility] [place] Substance Abuse IV drug use: No Sexual Sexually active: Yes Exercise Exercise type: Walking Alcohol Frequency: 1-2 times per year, Has alcoh ol use interfered with work or home life? No, Do you ever drink more than intended? No, Has anyone been hurt or at risk by your drinking? No, Ready to change: No, Concerns about alcohol use in household: No Smoking Status Never smoker, Type: Cigarettes, Previous treatment: None, Ready to change: No, Concerns about tobacco use in household: No, Exposure to Tobacco Smoke None, Cigarette Smoking Last 365 Days No, Reg Smoking Cessation Counseling No Social History TypeResponse 03/21/2014 [place] Substance Abuse IV drug use: No. Sexual Sexually active: Yes. Exercise Exercise type: Walking. Employment/School 1 Alcohol Current, Frequency: 1-2 times per year. Alcohol use interferes with work or home: No. Drinks more than intended: No. Others hurt by drinking: No. Ready to change: No. Household alcohol concerns: No. Smoking Status Never smoker; Type: Cigarettes; Previous treatment: None; Ready to change: No; Concerns about tobacco use in household: No; Exposure to Tobacco Smoke None; Cigarette Smoking Last 365 Days No; Reg Smoking Cessation Counseling No entered on: 12/31/17 1WORKING. [employer] Family History No Data Provided for This Section Advance Directives No Data Provided for This Section Functional Status No Data Provided for This Section
--- OUTSIDE RECORDS SUMMARY | 2020-06-15 14:13 | XMS REPORT | Continuity of Care Document ---
:1960 Author Organization [facility] t Address [address] [place] [place] [address] Care Team Providers Name Role Phone Asked, Pcp Primary Care Physician Unavailable Tristan HILL Attending Clinician Unavailable Lee Miranda MD Attending Clinician Jose Alberto RICH Attending Clinician Unavailable Marcella MORSE Attending Clinician Gabo Brunson MD Attending Clinician Kishore Chaves Attending Clinician Pipo Attending Clinician Ra De La Cruz Attending Clinician Kishore Chaves Admitting Clinician Pipo Admitting Clinician Payers Payer Name Policy Type Policy Number Effective Date Expiration Date S kelly BCBSBCBS OUT xxxxxxxxxxxx 2019 [place] OF 00:00:00 [facility] STATExxxxxxxxx xx2019-Pr esentPPO Problems Condition Condition Condition Status Onset Resolution Last Treating Co mments Source Name Details Category Date Date Treatment Clinician Date H/O H/O Disease Active [place] resection resection 04-28 Meth [place] of small of small 00:00: st bowel bowel 00 Chronic Chronic Disease Active [place] diarrhea diarrhea 04-28 Method i 00:00: st 00 History of History of Disease Active [place] small small 04-28 Methodi bowel bowel 00:00: st obstructio obstructio 00 n n 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 00:00: st 00 Asthma Asthma Disease Active [place] 04-28 Methodi 00:00: st 00 Frequent Frequent Disease Active [place] headaches headaches 04-28 Meth [place] 00:00: st 00 Hx of Hx of Disease Active [place] cholecyste cholecyste 04-28 Nd faraz ctomy ctomy 00:00: st 00 Hx of Hx of Disease Active [place] appendecto appendecto 04-28 Nd faraz my my 00:00: st 00 SMALL Diagnosis Active 2014-092015-08-31 [facility] oria BOWEL 2- 15:35:00 l OBSTRUCTIO SMALL 08:00: Mari nn N BOWEL 00 OBSTRUCTIO N Active 08/31/2015 [place] OTHER Diagnosis Active 2014-092015-09-03 Mem oria INTESTINAL 2- 13:32:00 l OBS OTHER 08:00: [place] INTESTINAL 00 OBS Active 08/31/2015 [place] HIGH GRADE Diagnosis Active 2014-05-25 Memoria PARTIAL 03-20 16:57:00 l SMALL HIGH 00:00: [place] BOWEL GRADE 00 OBSTRUCTI PARTIAL SMALL BOWEL OBSTRUCTI Active 03/20/2014 [place] ABD PAIN Diagnosis Active 2014-04-04 M emoria 2-05 11:53:00 l ABD PAIN 00:00: Jeffrey n 00 Active 11/02/2013 [place] Sinus Sinus Diagnosis Active [facility] congestion [facility] Chronic [facility] Diagnosis [facility] Mild Mild Diagnosis Active [facility] intermitte intermitte [facility] kes - nt asthma nt asthma Masoud sam without without l complicati complicati Ou tpati on on ent Clinics Hypertrigl Hypertrigl Problem Active [facility] yceridemia yceridemia [facility] Chewing Chewing Problem Active [facility] tobacco tobacco [facility] - nicotine nicotine Memori a dependence dependence l without without Outpati complicati complicati en t on on Clinics Acute Problem 2018-04-09 Memor ia kidney 13:06:03 l failure, Acute [place] unspecifie kidney d failure, unspecifie d 04/09/2018 [place] Anal Problem Resolve 2018-04-09 Masoud sam fissure d 13:06:03 l (disorder) Anal Jeffrey n fissure (disorder) Resolved Problem 04/09/2018 OPID [place] ASTHMA(Con Problem Resolve 2018-04-09 Memoria firmed) d 13:06:03 l [place] ASTHMA(Con firmed) Resolved Problem 04/09/2018 [place] Malignant Problem Resolve 2018-04-09 M emoria neoplastic d 13:06:03 l disease [place] (disorder) Malignant neoplastic disease (disorder) Resolved Problem 04/09/2018 testicle OPID [place] Diarrhea Problem Resolve 2018-04-09 Me moria (finding) d 13:06:03 l Diarrhea Jeffrey n (finding) Resolved Problem 04/09/2018 [place] Kidney Problem Resolve 2018-04-09 Masoud sam stone d 13:06:03 l (disorder) Kidney Herm conchita stone (disorder) Resolved Problem 04/09/2018 OPID [place] ASTHMA(Con Problem Resolve 2015-09-06 Memoria firmed) d 02:21:53 l [place] ASTHMA(Con firmed) Resolved Problem 09/06/2015 OPID [place] Abdominal Problem Active 2018-04-09 Me moria pain 13:06:03 l (finding) [place] Abdominal pain (finding) Active Problem 04/09/2018 OPID [place] Diverticul Problem Active 2018-04-09 M emoria itis 13:06:03 l (disorder) Jeffrey n Diverticul itis (disorder) Active Problem 04/09/2018 OPID [place] Steatosis Problem Active 2018-04-09 Me moria of liver 13:06:03 l (disorder) Jeffrey n Steatosis of liver (disorder) Active Problem 04/09/2018 OPID [place] Intestinal Problem Active 2018-04-09 M emoria obstructio 13:06:03 l n [place] (disorder) Intestinal obstructio n (disorder) Active Problem 04/09/2018 OPID [place] INTESTINAL Diagnosis Active 2014-05-25 Memoria OBSTRUCT 16:57:00 l NOS [place] INTESTINAL OBSTRUCT NOS Active [place] OTHER Diagnosis Active 2015-09-03 Mem oria INTESTINAL 13:32:00 l OBSTRUCTIO OTHER Mari nn N INTESTINAL OBSTRUCTIO N Active [place] Partial Problem 2017-2018-04-09 2018-04-09 Memoria intestinal 4-12 13:06:03 13:06:03 l obstructio Partial 04:11: Her baeza n, intestinal 55 unspecifie obstructio d as to n, cause unspecifie d as to cause 01/07/2018 04/09/2018 [place] Allergies, Adverse Reactions, Alerts Allergy Allergy Status Severity Reaction(s) Onset Inactive Treating Comm ents Source Name Type Date Date Clinician Vicodin Adverse Active chest pain [facility] Thorazin Adverse Active anaphylaxis [facility] Thorazin Thorazin Active Memori a e e l [place] Dilaudid Dilaudid Active Memori a l [place] Family History Family Member Diagnosis Comments Start Date Stop Date Source Natural father Diabetes [facility] Me thodist Natural father Heart disease [facility] Natural mother Other [place] Me thodist Natural sister Other [facility] [place] thodist Family member Colon cancer [facility] ethodist Family member Esophageal cancer [facility] Family member Stomach cancer [facility] Social History Social Habit Start Date Stop Date Quantity Comments Source Sex Assigned At [facility] ethodist Alcohol intake 2019-12-08 2019-12-08 Current drinker [place] [facility] 00:00:00 00:00:00 of alcohol (finding) Alcohol Comment 2019-10-10 2019-10-10 1-2 drinks per [place] [facility] 00:00:00 00:00:00 week Social History 2014-03-21 2014-03-21 [facility] 00:26:05 00:26:05 Smoking Status Start Date Stop Date Source Never smoker [facility] Medications Ordered Filled Start Stop Current Ordering Indication Dosage Frequency Signature Comments Components Source Medication Medication Date Date Medication? Clinician (SIG) Name Name mesalamine 2020- No 250mg Q.25D Take 1 [place] ([place]) 3-04 04-03 capsule Method i 250 mg CR 00:00: 23:59 ([address] capsule 00 :00 total) by mouth 4 (four) times a day for 120 doses. polyethylen 2020- No 4000mL Take 4,000 Cuello e glycol 2-11 02-11 mL by Methodi (GOLYTELY) 00:00: 23:[address] 236-22.74-6 00 :00 for 1 .74 -5.86 dose. gram Please solution drink half of the gallon as directed on the box. colestipol Yes [place] HCl 1-13 Methodi (COLESTIPOL 14:22: st ORAL) 26 Bromfed DM Bromfed DM 2017-09 Yes [place] [address] [facility] 2-24 needed [facility] ProAir HFA ProAir HFA 2017-09 Yes [place] [address] [facility] 2-24 needed [facility] 00:[facility]: Memoria 00 l [facility]ics PredniSONE PredniSONE 2017-09 [place] [address] [facility] 2-24 - [facility] - 00:00: 00:00 Memoria 00 :00 l [facility] Acetaminoph No 1 - 2 tab, Memoria en 300 MG / 4-06 PO, Q4H, l Codeine 16:43: PRN Pain, Mari nn Phosphate 00 X 3 day, # 30 MG Oral 20 tab, 0 Tablet Refill(s) [Tylenol with Codeine #3] Magnesium No Notes: Memori a Sulfate 01-01 WASTE: F/P l 11:29: - Sink; E [place] 00 - Municipal Trash Bin Morphine No Notes: Memoria 4-05 (Same l 21:40: as:MORPhin [place] 00 e Sulfate) Zofran No Notes: Memoria -05 (Same as: l 17:53: Zofran) [place] 00 MEDICATION WASTE Product Size: 4 mg Product Wasted: ___ mg Tylenol No Notes: Do Memor ia -05 not exceed l 17:53: 4 gm/day. [place] (Same as: Tylenol) normal No 1,000 mL, Memori a saline 0.9% 12-31 Rate: 100 l IV 1,000 mL 17:53: ml/hr, Herm Infuse over: 10 hr, Route: IV, Dosing Weight 77.273 kg, Total Volume: 1,000, Start date: 12/31/17 12:53:00 CDT, Duration: 30 day, Stop date: 01/30/18 12:52:00 CDT, 1.93, m2 Albuterol No Notes: SEE Me moria 0.83 MG/ML 4-05 RT l Inhalant 16:44: DOCUMENTAT Her baeza Solution 00 ION (Same as: Proventil) Morphine No Notes: Memoria 4-05 (Same l 14:05: as:MORPhin [place] 00 e Sulfate) Sodium No 1,000 mL, Memori a Chloride -05 1000 l 0.9% 14:05: ml/hr, [place] (Bolus) IV 00 Infuse Over: 1 hr, Route: IV, 1,000, Drug form: INJ, ONCE, Priority: STAT, Dosing Weight 73.722 kg, Start date: 12/31/17 9:05:00 CDT, Stop date: 12/31/17 9:05:00 CDT Saline No Notes: Memoria Flush 0.9% 05 (Same as: l 14:05: BD [place] Posiflush) Ondansetron No Notes: Masoud sam -05 (Same as: l 14:05: Zofran) [place] MEDICATION WASTE Product Size: 4 mg Product Wasted: ___ mg ciprofloxac 2014-09 Yes 500 mg = 1 Memoria in 500 mg 2-07 tab, PO, l oral tablet 17:32: Q12H, X 7 H , # 14 tab, 0 Refill(s) Metronidazo 2014-09 Yes 500 mg = 1 Memoria le 500 MG 2-07 tab, PO, l Oral Tablet 17:32: BID, X 7 He , # 14 tab, 0 Refill(s) potassium 2014-09 No 40 mEq, Memor ia chloride 06 Route: l 16:00: IVPB, [place] 00 ONCE, Dosing Weight 75, kg, Start date: 09/02/15 10:00:00, Stop date: 09/02/15 10:00:00 potassium 2014-09 No Notes: Memori a chloride 2-06 Infuse at l 13:00: a rate of [place] 00 10 mEq/hr. (Same as: KCL) Ciprofloxac 2014-09 No Notes: Do M emoria in 2-05 not l 21:00: refrigerat [place] 00 e Flagyl 2014-09 No Notes: Memoria 2-05 (Same as: l 20:07: Flagyl) [place] 00 Avoid alcohol. Colestipol 2014-09 Yes 2-3 tab, Mem oria Hydrochlori 2-05 PO, TID l de 1000 MG 00:12: [place] Oral Tablet 00 Ondansetron 2014-09 No Notes: Masoud sam 2-04 (Same as: l 22:36: Zofran) [place] 00 MEDICATION WASTE Product Size: 4 mg Product Wasted: ___ mg Morphine 2014-09 No Notes: Memoria 2-04 (Same l 22:36: as:MORPhin [place] 00 e Sulfate) potassium 2014-09 No Notes: Memori a chloride 2-04 Infuse at l 22:00: a rate of [place] 00 10 mEq/hr. (Same as: KCL) Morphine 2014-09 No Notes: Memoria 2-04 (Same l 21:07: as:MORPhin [place] 00 e Sulfate) Zofran 2014-09 No Notes: Memoria 2-04 (Same as: l 21:06: Zofran) [place] 00 MEDICATION WASTE Product Size: 4 mg Product Wasted: ___ mg Morphine 2014-09 No Notes: Memoria 2-04 (Same l 21:06: as:MORPhin [place] 00 e Sulfate) Morphine 2014-09 No 4 mg, Memoria 2-04 Route: l 20:02: IVP, ONCE, [place] 00 Dosing Weight 75.636, kg, Priority: STAT, Start date: 08/31/15 14:02:00, Stop date: 08/31/15 14:02:00 Ondansetron 2014-09 No 4 mg, Memor ia 2-04 Route: l 20:02: IVP, ONCE, [place] 00 Dosing Weight 75.636, kg, Priority: STAT, Start date: 08/31/15 14:02:00, Stop date: 08/31/15 14:02:00 Sodium 2014-09 No 1,000 mL, Memori a Chloride 2-04 Rate: 125 l 0.154 20:02: ml/hr, [place] MEQ/ML 00 Infuse Injectable over: 8 Solution hr, Route: IV, Dosing Weight 75.636 kg, Total Volume: 1,000, Start date: 08/31/15 14:02:00, Duration: 30 day, Stop date: 09/30/15 14:01:00 Saline 2014- No Notes: Memoria Flush 0.9% 2-04 (Same as: l 20:02: BD [place] 00 Posiflush) Colestipol Colestipol Yes [place] [address] [facility] Vital Signs Vital Name Observation Time Observation Value Comments Source Systolic blood 2019-11-15 09:25:00 113 mm[Hg] [place] [facility] pressure Diastolic blood 2019-11-15 09:25:00 78 mm[Hg] [place] [facility] pressure Heart rate 2019-11-15 09:25:00 76 /min [place] [facility] Body height 2019-11-15 09:25:00 170.2 cm [place] [facility] Body weight 2019-11-15 09:25:00 78.926 kg [place] [facility] BMI 2019-11-15 09:25:00 27.25 kg/m2 [place] [facility] Body temperature 2019-10-10 14:05:00 36.17 Loren [place] [facility] Respiratory rate 2019-10-10 14:05:00 18 /min [place] [facility] Oxygen saturation in 2019-10-10 14:05:00 100 /min [place] [facility] Arterial blood by Pulse oximetry Temperature Oral (F) 2018-01-01 12:44:00 98.1 F [facility] [place] Respitory Rate 2018-01-01 12:44:00 Memori al [place] Heart Rate 2018-01-01 12:44:00 [facility] [place] Systolic (mm Hg) 2018-01-01 12:44:00 Masoud rial [place] Diastolic (mm Hg) 2018-01-01 12:44:00 Mem orial [place] Respitory Rate 2018-01-01 08:15:00 Memori al [place] Heart Rate 2018-01-01 08:15:00 [facility] [place] Systolic (mm Hg) 2018-01-01 08:15:00 Masoud rial [place] Diastolic (mm Hg) 2018-01-01 08:15:00 Mem orial [place] Temperature Oral (F) 2018-01-01 08:15:00 98.2 F [facility] [place] Temperature Oral (F) 2018-01-01 04:54:00 98.8 F [facility] [place] Systolic (mm Hg) 2018-01-01 04:54:00 Masoud rial [place] Diastolic (mm Hg) 2018-01-01 04:54:00 Mem orial [place] Respitory Rate 2018-01-01 04:54:00 Memori al [place] Heart Rate 2018-01-01 04:54:00 [facility] [place] Height 2017-12-31 17:09:00 170.18 cm [facility] [place] BMI Calculated 2017-12-31 17:09:00 Memori al [place] Weight 2017-12-31 17:09:00 [facility] [place] Weight 2017-12-31 13:39:00 [facility] [place] BMI Calculated 2017-12-31 13:39:00 Memori al [place] Height 2017-12-31 13:39:00 170.18 cm [facility] [place] Respitory Rate 2015-09-03 17:42:00 Memori al [place] Heart Rate 2015-09-03 17:42:00 [facility] [place] Temperature Oral (F) 2015-09-03 17:42:00 98.2 F [facility] [place] Systolic (mm Hg) 2015-09-03 17:42:00 Masoud rial [place] Diastolic (mm Hg) 2015-09-03 17:42:00 Mem orial [place] Respitory Rate 2015-09-03 13:15:00 Memori al [place] Systolic (mm Hg) 2015-09-03 13:15:00 Masoud rial [place] Diastolic (mm Hg) 2015-09-03 13:15:00 Mem orial [place] Temperature Oral (F) 2015-09-03 13:15:00 98 F [facility] [place] Heart Rate 2015-09-03 13:15:00 [facility] [place] Systolic (mm Hg) 2015-09-03 09:17:00 Masoud rial [place] Diastolic (mm Hg) 2015-09-03 09:17:00 Mem orial [place] Respitory Rate 2015-09-03 09:17:00 Memori al [place] Heart Rate 2015-09-03 09:17:00 [facility] [place] Temperature Oral (F) 2015-09-03 09:17:00 98 F [facility] [place] Height 2015-08-31 22:34:00 170.18 cm [facility] [place] BMI Calculated 2015-08-31 22:34:00 Memori al [place] Weight 2015-08-31 22:34:00 [facility] [place] Weight 2015-08-31 19:47:00 [facility] [place] Procedures Procedure Date / Time Performing Clinician Source Performed SURGICAL PATHOLOGY REQUEST 2019-10-10 14:24:00 Robin Miranda [facility] COLONOSCOPY 2019-10-10 13:07:00 Robin Miranda ethodist Appendectomy [facility] [place] Bilateral vasectomy Memorial Her baeza Cholecystectomy [facility] [place] Colon operation [facility] [place] Miscellaneous [facility] [place] operations<sup>1</sup> Scrotum and testicle Memorial rmann operation Plan of Care Planned Activity Planned Date Details Comments Source Future Scheduled 2020-05-29 INFLUENZA VACCINE [place] [facility] Test 00:00:00 [code = INFLUENZA VACCINE] Future Scheduled 2010 COLONOSCOPY SCREENING [place] [facility] Test 00:00:00 [code = COLONOSCOPY SCREENING] Future Scheduled 2010 SHINGLES VACCINES [place] [facility] Test 00:00:00 (#1) [code = SHINGLES VACCINES (#1)] Encounters Start End Encounter Admission Attending Care Care Encounter Source Date/Time Date/Time Type Type Clinicians Facility Department ID 2018-09-20 2018-09-20 [facility] [id number] 08:30:00 08:30:00 [facility] 2017-12-31 2018-01-01 Outpatient Kishore PATIÑO S [id number] 08:34:00 12:23:00 Hal Chaves 2015-08-31 2015-09-03 Outpatient KAYLYN Foss MHSL [id number] 13:45:00 13:19:00 [place] 08 2014-04-27 2014-04-27 Outpatient HILDA De La [place] [id number] 08:34:00 23:59:00 Shiv Knapp Results Test Description Test Time Test Comments Results Result Comments Source Surgical pathology request 2019-10-12 12:55:50 Test Item Value Reference Range Interpretation Comme nts Case number (test code = [id number]) [id number] Surgical pathology report (test code = See link below for PDF Lab R eport 0890) Result status (test code = [id number]) This is Final Report for [id number] [place] MethodistCHEM [id number] 10:47:0058[facility]ann[facility]M PANEL 2018-01-01 10:47:007.5[facility] HermannCHEM [id number] 10:47:0014.2[facility] HermannCHEM ZHBVB7196-15-61 10:47:0020[facility] HermannCHEM EBBBU8012-59-75 10:47:37009Nmkkfogq HermannCHEM ZIHCU4255-28-61 10:47:003.2[facility] HermannCHEM IPXFJ3253-79-89 10:47:74300Yjwveqvo HermannCHEM LTXSL3541-52-52 10:47:001.34 [facility]annCHEM SXSMA4188-19-37 10:47:0019[facility] HermannCHEM PANEL 2018-01-01 10:47:0088[facility] HermannCHEM RLTBE1131-41-47 10:47:001.0[facility] HermannCHEM UFKJD6846-28-48 10:47:002.1[facility]orial TqabhqiGFCCUTJELO6828-04-87 10:47:0089.3[facility]orial GarthbnWXKBDMKSAU7700-94-56 10:47:00 Test Item Value Reference Range Interpretation Comments MCH (test code = MCH) 30.6 pg 27.0-31.0 Memorial QvvbdccVYEWHHUBWE6603-56-22 10:47:0040.8[facility] HermannHEMATOLOGY 2018-01-01 10:47:23815Berqeeau TxgxopdTLOIMKZRVM8810-94-37 10:47:0013.2[facility]orial ZkvojauEMXKRFNBAG6957-06-25 10:47:0034.3[facility] OfpmyuxGMYWSACHGI6111-86-75 10:47:007.4[facility]orial RnslmanJKQHVDFSTN6145-79-49 10:47:007.0[facility] [place] JNRJPRUOPO6993-10-72 10:47:0014.0[facility] IrfocjeZVMTINGGPR8274-82-09 10:47:00 4.57[facility] PgcldwuFVQNYFDTIH1840-03-40 10:47:000.0[facility] HermannHEMATOLOGY 2018-01-01 10:47:000.2[facility] WemrlfmNOFVETVUHG6501-11-01 10:47:000.6[facility] SxqwhogFXMFEUIIJP7981-53-78 10:47:008.2[facility] CjppagkZIJHUHTQRH7751-02-01 10:47:0028.4[facility] RnhmnauUHIKLEBURE7547-62-46 10:47:002.0[facility] [place] GQBWWENRTF4614-24-44 10:47:000.3[facility] OduxihpQBZCXVEKEV4634-70-06 10:47:00 59.5[facility] WkovmdoLGOSKAKLLT0675-62-90 10:47:003.6[facility] HermannHEMATOLOGY 2018-01-01 10:47:004.2[facility] HermannCHEM JRQHE7766-54-02 14:47:31182Jdubfujk HermannCHEM NMBDL2045-64-75 14:47:00 Test Item Value Reference Range Interpretation Comments A/G Ratio (test code = A/G Ratio) 1.1 1 0.7-1.6 [facility]annCHEM [id number] 14:47:004.1[facility] HermannCHEM PANEL 2017-12-31 14:47:00 Test Item Value Reference Range Interpretation Comments B/C Ratio (test code = B/C Ratio) 11 1 6-25 [facility]annCHEM [id number] 14:47:0016.7[facility] HermannCHEM PANEL 2017-12-31 14:47:0037[facility] HermannCHEM TGKEZ3628-56-56 14:47:0087[facility] HermannCHEM SMRKQ6361-70-66 14:47:001.1[facility] HermannCHEM PGCII2420-66-42 14:47:0017[facility] HermannCHEM OIMYR9201-90-51 14:47:004.6[facility] HermannCHEM PJHYI4471-12-49 14:47:0015[facility] HermannCHEM NECXJ7502-15-69 14:47:008.7 [facility]annCHEM CREUO3541-57-26 14:47:009.3[facility] HermannCHEM PANEL 2017-12-31 14:47:0021[facility] HermannCHEM RKVYF5457-45-45 14:47:67779Zffyhubq HermannCHEM BEIGG6117-04-15 14:47:35530Tmryrtlu HermannCHEM XSKSV3444-02-20 14:47:0023[facility] HermannCHEM EYTYW7279-35-43 14:47:003.7[facility] HermannCHEM ZFLLT1693-94-19 14:47:001.95[facility] HermannCHEM TASWI5540-48-76 14:47:12359 Memorial BmdpitkETTSAULZQK3180-30-90 14:47:005.63[facility] HermannHEMATOLOGY 2017-12-31 14:47:0012.1[facility] CttiiufYIHXLTXRKT2827-25-52 14:47:0017.3[facility] DeheoybWUOJVYBWKU6819-24-75 14:47:0050.6[facility] HfqxhmeZNIURJJKOY8968-31-79 14:47:00 Test Item Value Reference Range Interpretation Comments MCH (test code = MCH) 30.7 pg 27.0-31.0 Memorial RktjtlwJSBRNURKPD7156-24-81 14:47:0089.9[facility] HermannHEMATOLOGY 2017-12-31 14:47:30005Qxoctkex PxqdmzcORQJQURHWU7475-23-29 14:47:0012.9[facility] OierbauTTOENGOCXQ6569-21-53 14:47:0034.1[facility] QasbuonVJPLEXLGFF6621-62-12 14:47:008.0[facility] JfmqjmzRGIBGNNVPC7781-05-52 14:47:000.0[facility] [place] OONQVGPQEG7423-83-89 14:47:000.1[facility] YpehfaxDBCHXJLMUX0837-46-65 14:47:000.8 Memorial LplusthCULPQKJASL7389-05-27 14:47:001.2[facility] HermannHEMATOLOGY 2017-12-31 14:47:000.2[facility] MjzhtfaQAOTZWXWWB2319-39-10 14:47:009.9[facility] MymcujnYUHMLGEFAT8599-23-34 14:47:000.9[facility] MnqxrhgGBYBNDGUOD9816-81-07 14:47:0010.1[facility] ZgogzfpPXQLLQTGWF9445-02-01 14:47:007.0[facility] [place] XAEEIZAVSG8673-28-22 14:47:0081.8[facility] PnbghrdLZFBJRLREF8296-99-64 14:47:00 Normal (12/31/17 9:47 AM)[facility]ann[facility] AND PTFBK5653-07-24 14:47:004 [facility] AND FXPAA7295-87-98 14:47:003[facility]ann[facility] AND XDESA6803-90-82 14:47:78180Yjdarwjm HermannURINE AND UVYYQ2197-95-24 14:47:001 [facility] AND RDFXF8724-10-55 14:47:00Negative (12/31/17 9:47 AM) [facility] RHPNM5629-36-12 14:47:00 Test Item Value Reference Range Interpretation Comments UA pH (test code = UA pH) 5.0 1 5.0-8.0 [facility] [id number] 14:47:00 Test Item Value Reference Range Interpretation Comments UA Spec Grav (test code = UA Spec 1.031 1 Grav) [facility] [id number] 14:47:00Marked *ABN*(12/31/17 9:47 AM) [facility] [id number] 14:47:00Negative (12/31/17 9:47 AM) [facility] INAQS3638-50-11 14:47:00Negative (12/31/17 9:47 AM) [facility] RNUGW8126-64-24 14:47:00Small *ABN*(12/31/17 9:47 AM) [facility] FWTYP0467-38-44 14:47:00Amber *ABN*(12/31/17 9:47 AM) [facility]annCHEM JTWFJ0911-46-87 11:10:0070[facility] HermannCHEM PANEL 2015-09-03 11:10:16107Haiblxud HermannCHEM EZRFS8814-92-67 11:10:0012.3[facility] HermannCHEM DCYLL0084-49-61 11:10:97088Giipusnf HermannCHEM TLLAS0349-08-93 11:10:0026[facility] HermannCHEM JXHKP0611-81-64 11:10:003.3[facility] HermannCHEM LVWOO5814-64-59 11:10:007.8[facility] HermannCHEM LAKJM4478-42-05 11:10:001.16 [facility] HermannCHEM UKLBK0579-99-92 11:10:004[facility] HermannCHEM PANEL 2015-09-03 11:10:00733Pgvgpljq WvowlumUOBMLSCCRJ6800-06-96 11:10:002.5[facility] EjnkymmADLEOMSPKT6748-63-33 11:10:000.4[facility] AxeqrnkEWUTOGPRPE9098-70-21 11:10:000.5[facility] HzzamtjYLBRCXPCIH8181-04-44 11:10:004.9[facility] [place] MFQSJTZVQD7206-02-75 11:10:000.2[facility] GshzwebWKEFUJRMWY8068-30-94 11:10:000.0 Memorial WyssrnuLCNJKIRXQF2647-81-95 11:10:0030.2[facility] HermannHEMATOLOGY 2015-09-03 11:10:0060.2[facility] NobswlyPMPBVLRFNG4286-79-76 11:10:002.8[facility] PzestrmNBLLCEWYAS4698-15-17 11:10:006.4[facility] ZtxuvgxUOOWMDGXJC5899-23-57 11:10:0012.4[facility] KbafjwpIOGFAQPVBL4979-19-96 11:10:0092.0[facility] [place] ZVWQRFKNXI2026-07-42 11:10:0037.8[facility] RbswbajJEQPTKGCWV3030-50-02 11:10:00 12.9[facility] DnrgdznMGBTVVXSCB2772-07-14 11:10:0032.8[facility]annHEMATOLOGY 2015-09-03 11:10:00 Test Item Value Reference Range Interpretation Comments MCH (test code = MCH) 30.1 pg 27.0-31.0 [facility] KxypnktVRCGJVEOKQ4224-06-22 11:10:004.11[facility]annHEMATOLOGY 2015-09-03 11:10:008.2[facility] ZwoaneqXGQICXLLUI1748-78-78 11:10:45630Nuybomnr CdmmpwtSFCOCCQQUS1686-19-70 11:10:007.7[facility] HermannCHEM HRBKY5560-46-83 11:27:0074[facility]annCHEM CPNYV1434-78-25 11:27:0011.9[facility]annCHEM ASXQQ0207-90-57 11:27:007.8[facility] HermannCHEM LCTWG2735-51-13 11:27:001.12 [facility]annCHEM UYYMG3183-79-51 11:27:0025[facility] HermannCHEM PANEL 2015-09-02 11:27:30430Yqijsyxw HermannCHEM ICANJ4933-79-16 11:27:82857Shlsvoso HermannCHEM ZUHEW3537-56-35 11:27:002.9[facility] HermannCHEM QIMHE6861-52-28 11:27:004[facility]annCHEM TTKGL9219-89-95 11:27:04486Kinawqwm Brandon GBMZUJPICN6006-60-01 11:27:0037.7[facility] RzxivisNSBPMKWPKI5837-79-58 11:27:00 92.2[facility] FgjipmuUFJPUSTTNS1596-11-61 11:27:00 Test Item Value Reference Range Interpretation Comments MCH (test code = MCH) 30.2 pg 27.0-31.0 [facility] IwrolgdWMCFOWLFCU8762-51-68 11:27:25428Beyrspbh HermannHEMATOLOGY 2015-09-02 11:27:007.5[facility] EoakloxICXMWEBNMO3156-19-54 11:27:0012.4[facility] CwxcckwHREYCXWGUS1109-03-81 11:27:004.09[facility] YhdqlnsCKSQIASXFZ2947-24-06 11:27:0032.8[facility] WjdclekAPXYCUJCWA7327-43-92 11:27:0012.9[facility] [place] VQTFPDZZRP2296-96-92 11:27:006.9[facility] NioocvzDFKSHXXAPW5373-64-59 11:27:006.7 [facility] YiexumdGVDNPLPHWR2494-32-24 11:27:000.4[facility] HermannHEMATOLOGY 2015-09-02 11:27:0058.5[facility] BpkfoinGJOYPQVUFU7535-32-19 11:27:0032.2[facility] TznyqwdEORZQWVBBD1320-84-47 11:27:002.2[facility] FzqaiosOCOKMOBIJG5811-66-69 11:27:004.0[facility] DkfqwzfMXLZTYIQJT8587-00-79 11:27:002.2[facility] [place] RYDUPJWXJL2486-84-68 11:27:000.5[facility] YsnvutvFISNLHAFHI1384-01-59 11:27:000.2 [facility] MddadvbAKGLCLBXKB5844-67-17 11:27:000.0[facility] HermannCHEM PANEL 2015-09-01 11:15:008[facility] HermannCHEM IVPYD9717-75-80 11:15:0025[facility] HermannCHEM SULTC5530-55-26 11:15:0010.7[facility] HermannCHEM NYDWG7409-92-38 11:15:003.2[facility] HermannCHEM YECBT3264-17-81 11:15:007.8[facility] HermannCHEM DCNWL7855-14-07 11:15:005.9[facility] HermannCHEM EBGVS9823-77-49 11:15:0086 [facility]annCHEM QTMXM1609-84-22 11:15:009[facility] HermannCHEM PANEL 2015-09-01 11:15:0016[facility] HermannCHEM SSNNR9069-14-96 11:15:001.2[facility] HermannCHEM RLLBF6389-28-10 11:15:0076[facility]annCHEM TVGHC7834-29-52 11:15:0021[facility] HermannCHEM TGRXK9928-58-19 11:15:002.7[facility] HermannCHEM YMTEK9326-36-44 11:15:0069[facility]annCHEM NCIAJ5898-81-28 11:15:000.5 [facility]annCHEM YNYNC1420-83-87 11:15:11632Pktxyfey HermannCHEM PANEL 2015-09-01 11:15:001.18[facility] HermannCHEM AXGFZ4916-22-74 11:15:03931Lshyblkl HermannCHEM YRRKS0943-51-85 11:15:003.7[facility] ZppzzlvRAYUSJXZOY3474-30-96 11:15:000.5[facility] OszvmkzLIFVNPSUFI0004-15-24 11:15:000.2[facility] KLLUBFYPRN7773-56-86 11:15:000.0[facility] XmjthbcCOWJMUKJHX2399-81-10 11:15:002.9 [facility] QuwjkkjMRVELAUVGA4907-46-83 11:15:000.5[facility] HermannHEMATOLOGY 2015-09-01 11:15:003.8[facility] IjoendiWMQTEIRIAY5923-52-44 11:15:006.4[facility] RusjapvLCAABMFCKQ5186-31-90 11:15:002.3[facility] DfroktrBAJCDOMBCH9981-16-05 11:15:0039.5[facility] KwukhncUMFYYRYMHK0819-62-54 11:15:0051.3[facility] QKEMQTYHYS9893-44-56 11:15:004.15[facility] LgqdhewTWWUYGIRAX6485-08-17 11:15:00 Test Item Value Reference Range Interpretation Comments MCH (test code = MCH) 30.2 pg 27.0-31.0 [facility] BwsgwhsWKCOCHQQYH9564-82-39 11:15:0092.0[facility] HermannHEMATOLOGY 2015-09-01 11:15:0038.2[facility] GhqiekqELAWVBOEGR0395-29-37 11:15:0012.5[facility] LqjqwnjICNKNINTXJ3512-41-13 11:15:0032.8[facility] JzqppnwTFOODCHBVG4354-91-28 11:15:007.9[facility] IekuxrmJHRLHLJYHP6372-74-49 11:15:53044Ryvmjhjb [place] OHJUNJJMNT0900-62-41 11:15:0012.9[facility] WykcptzWFRRTTFKDR4621-92-53 11:15:00 7.3[facility] HermannURINE AND XUUDK6966-25-15 20:25:00 Test Item Value Reference Range Interpretation Comments UA pH (test code = UA pH) 5.5 1 5.0-8.0 [facility] AND NPHZH0127-53-28 20:25:00>=1.030 *ABN*(08/31/15 2:25 PM)[facility] KBRCO2659-18-62 20:25:00Negative *NA*(08/31/15 2:25 PM)[facility] JEFED5486-96-74 20:25:00Small *ABN*(08/31/15 2:25 PM)[facility] PMJTB4913-12-22 20:25:00Negative (08/31/15 2:25 PM) [facility] ZYJCJ9680-98-81 20:25:00Negative (08/31/15 2:25 PM) [facility] UFCEH3465-97-22 20:25:00Negative (08/31/15 2:25 PM) [facility] FSMUV9238-18-51 20:25:000.2[facility] AND CWNMD3343-07-56 20:25:00Negative (08/31/15 2:25 PM)[facility] BRVCP7698-50-09 20:25:00Clear (08/31/15 2:25 PM)[facility] STOOL 2015-08-31 20:25:00Yellow *NA*(08/31/15 2:25 PM)[facility] HermannCHEM PANEL 2015-08-31 20:16:003.3[facility] HermannCHEM JQFOC9304-70-02 20:16:007.5[facility] HermannCHEM CHKQV4215-78-75 20:16:004.2[facility] HermannCHEM JHQPC0174-71-15 20:16:001.3[facility] HermannCHEM NUFBD2194-57-46 20:16:0017[facility] HermannCHEM ITJKB0646-02-03 20:16:000.4[facility] HermannCHEM OQDIM7931-35-97 20:16:0019 [facility]annCHEM VEUSD9636-13-91 20:16:0094[facility] HermannCHEM PANEL 2015-08-31 20:16:0011[facility]2015-12-04 20:16:02835JxqbohqjMethod[facility] CenterFueoqmjAXTGXUBALL5310-67-08 20:16:00 Test Item Value Reference Range Interpretation Comments PT (test code = PT) 13.8 s 12.0-14.7 [facility] CenterYmdwtbwGVDXHUCXYW1242-51-12 20:16:00 Test Item Value Reference Range Interpretation Comments PTT (test code = PTT) 29.5 s 22.9-35.8 [facility] CenterSyavkckWPWBYPHHGT5110-35-73 20:16:001.03[facility]
[2020-06-15] MEDS ORDERED: FENTANYL CITR 100 MCG/2 ML ONE (15:16)
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
[2020-06-15 19:40] VITALS: TEMP 98.7
[2020-06-15 19:41] VITALS: BP 136/81; O2SAT 99
== END 2020-06-15 16:30 | disposition home or self-care (01) ==
LOC: ER 14:09
DX: M54.2 Cervicalgia (principal); M25.512 Pain in left shoulder; V49.49XA Driver injured in collision with other motor vehicles in traffic accident, initial encounter; Z88.5 Allergy status to narcotic agent; Z88.8 Allergy status to other drugs, medicaments and biological substances
CPT/HCPCS: 70450; 72125; 73030; 96372; 99284; J3010